=== PATIENT | female | born 1995 | race Hispanic/Latino ===

== ENCOUNTER 2019-10-13 09:59 | Emergency (ER) | payer OTHER ==
[~2019-10-13] VITALS: Ht 165.1 cm; Wt 81.6 kg
--- NOTE | 2019-10-13 10:19 | Emergency Department Note ---
History of Present Illnes History of Present Illness History of Present Illness This is a 23 year old female [employer] district manager primary care sales, [employer], c/o cough, sore throat one day, lots of congestion, no f/c no n/v no SOB. no pmh or surgical hx. . Historian: Patient Arrival Mode: Car Front Desk Administrator Required: No Onset (how long ago): day(s) (1-2 days) Radiation: Reports non-radiation Severity: moderate Onset quality: gradual Duration (how long): day(s) Progression: waxing and waning Relieving factors: none Exacerbating factors: none Associated symptoms: Reports other Treatments prior to arrival: none Past Medical/Family History Physician Review I have reviewed the patient's past medical and family history. Any updates have been documented here. Past Medical History Recent Fever: No Clinical Suspicion of Infectio: No Past Medical History: None Past Surgical History: None Social History Smoking Cessation: Never Smoker Counseling Performed: No Any Illegal Drug Use: No TB Exposure/Symptoms: No Physically hurt or threatened: No Other Any Pre-Existing Lines (PICC,: No Review of Systems Review of Systems Constitutional: Reports no symptoms EENTM: Reports as per HPI Cardiovascular: Reports no symptoms Respiratory: Reports no symptoms Gastrointestinal: Reports no symptoms Genitourinary: Reports no symptoms Musculoskeletal: Reports no symptoms Integumentary: Reports no symptoms Neurological: Reports no symptoms Psychological: Reports no symptoms Endocrine: Reports no symptoms Hematological/Lymphatic: Reports no symptoms Physical Exam Related Data Allergies: Coded Allergies: No Known Allergies (Unverified , 10/13/19) Vital signs reviewed: Yes Physical Exam CONSTITUTIONAL Constitutional: Present well-developed, Present well-nourished HENT HENT: Present normocephalic, Present atraumatic, Present oropharynx clear/moist, Present nasal congestion, Present erythema HENT L/R: Present left ext ear normal, Present right ext ear normal EYES Eyes: Reports PERRL, Reports conjunctivae normal NECK Neck: Present ROM normal PULMONARY Pulmonary: Present effort normal, Present breath sounds normal CARDIOVASCULAR Cardiovascular: Present regular rhythm, Present heart sounds normal, Present capillary refill normal, Present normal rate GASTROINTESTINAL Abdominal: Present soft, Present nontender, Present bowel sounds normal GENITOURINARY Genitourinary: Present exam deferred SKIN Skin: Present warm, Present dry MUSCULOSKELETAL Musculoskeletal: Present ROM normal NEUROLOGICAL Neurological: Present alert, Present oriented x 3, Present no gross motor or sensory deficits PSYCHOLOGICAL Psychological: Present mood/affect normal, Present judgement normal Results Laboratory Lab results reviewed: Yes Laboratory comments strep negative Assessment & Plan Medical Decision Making MDM URI bronchitis Assessment & Plan Final Impression: (1) Acute bronchitis (2) Upper respiratory infection Depart Disposition: HOME, SELF-CARE Physician Attestation Provider Attestation Z Gagan regan on D/c KYM OLIVER MD Oct 13, 2019 10:19
--- NOTE | 2019-10-13 11:50 | NUR ---
Pt received call from [facility] while she was here and result on covid test was negative.
== END 2019-10-13 10:54 | disposition home or self-care (01) ==
LOC: FSED 10:25
DX: R05 Cough (principal); J20.9 Acute bronchitis, unspecified; J06.9 Acute upper respiratory infection, unspecified; F17.210 Nicotine dependence, cigarettes, uncomplicated
CPT/HCPCS: 83518; 99283